=== PATIENT | male | born 1980 | race Caucasian/White ===

== ENCOUNTER 2018-06-01 13:13 | Emergency (ER) | payer SELFPAY ==
[~2018-06-01] VITALS: Ht 185.4 cm; Wt 113.4 kg
[2018-06-01 13:27] VITALS: BP 136/88
--- NOTE | 2018-06-04 16:58 | ED.ADGEN ---
Past History Past Medical History: No Pertinent History Past Surgical History: Other Alcohol Use: Occasionally Drug Use: None Adult General Chief Complaint Chief Complaint Abdominal pain HPI HPI Patient is a 37-year-old male with chronic constipation and presents with acute upper abdominal pain with no bowel movement the past 2-3 days. Patient states pain is similar in quality and location and pattern is chronic abdominal pain from constipation. No vomiting, diarrhea. No bloody stools dark tarry stools. No medications or therapy sticking prior to ED arrival. No other acute symptoms or complaints. [] Review of Systems Review of Systems Review symptoms as per history of present illness. All other review symptoms are negative. All other systems were reviewed and found to be within normal limits, except as documented in this note. Allergies Allergies Allergies Coded Allergies Type Severity Reaction Last Updated Verified No Known Drug Allergies 06/01/18 No Physical Exam Physical Exam Constitutional: Well developed, well nourished, no acute distress, non-toxic appearance. [] HENT: Normocephalic, atraumatic, bilateral external ears normal, oropharynx moist. [] Eyes: PERRLA, EOMI, conjunctiva normal. [] Neck: Normal range of motion, no tenderness. [] Cardiovascular:Heart rate regular rhythm, no murmur [] Lungs & Thorax: Bilateral breath sounds clear to auscultation. [] Abdomen: Bowel sounds normal, soft, mild epigastric pain tenderness. [] Skin: Warm, dry, no erythema, no rash. [] Back: No tenderness. [] Extremities: No tenderness. [] Neurologic: Alert and oriented X 3, normal motor function, normal sensory function, no focal deficits noted. [] Psychologic: Affect normal, judgement normal, mood normal. [] Current Patient Data Vital Signs Vital Signs Date Time Temp Pulse Resp B/P (MAP) Pulse Ox O2 Delivery O2 Flow Rate FiO2 06/01/18 13:27 97.6 77 18 95 Room Air EKG EKG [] Radiology/Procedures Radiology/Procedures [] Course & Med Decision Making Course & Med Decision Making Pertinent Labs and Imaging studies reviewed. (See chart for details) [Benign abdominal exam with h/o chronic constipation. Recommend supportive care with PCP follow-up. Return precautions reviewed.] Final Impression Final Impression [1. Abdominal pain 2. Constipation] Dragon Disclaimer Dragon Disclaimer This electronic medical record was generated, in whole or in part, using a voice recognition dictation system. EBONY RAPHAEL DO Jun 04, 2018 16:58
== END 2018-06-01 14:24 | disposition home or self-care (01) ==
LOC: ER 13:13
DX: K59.09 Other constipation (principal); G89.29 Other chronic pain; R10.13 Epigastric pain
CPT/HCPCS: 99281